=== PATIENT | male | born 1965 | race Native Hawaiian/Other Pacific Islander ===

== ENCOUNTER 2022-01-07 08:08 | Outpatient (CLI) | payer OTHER | END 2022-01-07 18:59 | disposition home or self-care (01) | LOC: NM 08:08 | PROVIDERS: ATTEND Internal Medicine | DX: S91.301A Unspecified open wound, right foot, initial encounter (principal); Y92.89 Other specified places as the place of occurrence of the external cause | CPT/HCPCS: A9561 ==

== ENCOUNTER 2022-03-14 08:05 | Outpatient (CLI) | payer OTHER | END 2022-03-14 21:35 | disposition home or self-care (01) | LOC: NM 08:05 | PROVIDERS: ATTEND Family Medicine | DX: E11.621 Type 2 diabetes mellitus with foot ulcer (principal); M86.171 Other acute osteomyelitis, right ankle and foot | CPT/HCPCS: A9561 ==

== ENCOUNTER 2022-05-20 08:05 | Outpatient (CLI) | payer OTHER | END 2022-05-20 19:06 | disposition home or self-care (01) | LOC: NM 08:05 | PROVIDERS: ATTEND Family Medicine | DX: M86.171 Other acute osteomyelitis, right ankle and foot (principal) | CPT/HCPCS: A9561 ==